=== PATIENT | male | born 1980 | race Caucasian/White ===

== ENCOUNTER 2020-10-09 10:23 | Emergency (ER) | payer SELFPAY ==
[2020-10-09 10:23] VITALS: BP 135/113; PULSE 57; RESP 16; TEMP 36.7; O2SAT 100; BMI 27.1
--- NOTE | 2020-10-09 10:27 | CT_ITS ---
WS: [id number] CT LUMBAR SPINE, noncontrast. HISTORY: pain TECHNIQUE: Contiguous 2.5 mm axial imaging are performed. Sagittal and coronal reformats are submitte d and reviewed. All CT scans at [facility] use at least one of these dose optimization te chniques: automated exposure control; mA and/or kV adjustment per patient size (includes targeted exa ms where dose is matched to clinical indication); or iterative reconstruction. IV contrast: None DLP: 2905.67 mGy.cm COMPARISON: None available. Straightening of the normal lumbar lordosis. Small hypertrophic endplate osteophytes at all levels. N o fractures. No cord compression is identified. L1-2: Mild osteophytic ridging and annular disc bulging. Very small osteophyte encroaches upon the RI GHT lateral thecal sac with no stenosis. L2-3: Normal. L3-4: Normal. L4-5: Mild annular disc bulging. Very shallow LEFT foraminal disc protrusion not contacting the nerve roots. Mild facet arthritis. L5-S1: Disc osteophyte centrally contacting the ventral thecal sac. There is very minimal contact on the S1 nerve roots bilaterally but the disc and osteophyte complex but no significant displacement. M ild bilateral foraminal narrowing. Visualized retroperitoneum is negative. CT/CT lumbar spine wo con* [id number] IMPRESSION: 1. No lumbar spine fracture. 2. Central disc osteophyte complex at L5-S1 abuts but does not displace the S1 nerve roots. 3. Mild bilateral foraminal stenosis at L5-S1. 4. Very shallow LEFT foraminal disc protrusion at L4-5 without nerve root cont act.
--- NOTE | 2020-10-09 10:29 | ED_ITS ---
HPI - Back Pain/Injury General: Chief Complaint: Back Pain/Injury Stated Complaint: BACK PAIN Time Seen by Provider: 10/09/20 10:25 History of Present Illness: HPI Narrative: 40-year-old male comes in via EMS for with complaint of back pain. He was getting ready to do a morning exercise routine retention stretching suddenly had some lower lumbar back discomfort was severe enough he was not able to continue his activities and actually quickly lowered himself to the ground. He denies any recent trauma or injury. He has had problems with the back in the past tells me he has been recommended that he have surgery in the past but is never pursued it no loss of bowel or bladder control no pain radiating to lower extremities MD elicited complaint: back pain Pertinent past history: prior back pain Onset (ago): minute(s) Timing: constant Severity: moderate Similar Symptoms Previously: Yes Quality: sharp Location: lumbar spine and left lower back Radiation: none Exacerbating factors: none Relieving factors: none Context: turning/twisting and bending Associated symptoms: Reports difficulty walking; Deny abdominal pain, arthralgias, chills, change in bowel habits, dysuria, fatigue, fecal incontinence, fever(s), hematuria, myalgias, nausea, numbness, syncope, tingling/numbness/burning, urinary frequency, urinary urgency, vomiting or weakness Review of Systems Const: Denies: fever(s), chills or fatigue ENMT: Denies: throat pain, ear or mastoid pain, nasal discharge or nasal congestion Card: Denies: syncope Resp: Denies: dyspnea, productive cough or non-productive cough GI: Denies: abdominal pain, nausea, fecal incontinence or change in bowel habits : Denies: dysuria, urinary urgency or hematuria Skin/Breast: Denies: rash or pruritus Neuro: Reports: difficulty walking Physical Exam Const: COMMON NORMALS: no acute distress GENERAL APPEARANCE: cooperative and comfortable ORIENTATION/CONSCIOUSNESS: Yes awake, Yes oriented to person, Yes oriented to place and Yes oriented to time HENMT: COMMON NORMALS: normocephalic, atraumatic and hearing grossly normal bilaterally HEAD & SCALP: normocephalic and atraumatic Neck/C-Spine: COMMON NORMALS: full ROM, no lymphadenopathy, supple and no JVD Resp: COMMON NORMALS: normal respiratory effort, No retractions, No use of accessory muscles and clear to auscultation bilaterally AUSCULTATION: clear to auscultation bilaterally Cardio: COMMON NORMALS: no JVD, regular rate, regular rhythm and No murmurs present (Cardio) RATE: regular rate RHYTHM: regular rhythm GI: COMMON NORMALS: Soft to palpation and No hepatosplenomegaly present AUSCULTATION: Yes normoactive bowel sounds PALPATION: Yes Soft to palpation, No Tenderness to palpation present (GI), No Guarding due to palpation present (GI) and Yes No hepatosplenomegaly present Extremity: COMMON NORMALS: normal to inspection, capillary refill normal, no clubbing, cyanosis or edema, no calf tenderness and no pedal edema Neuro: SENSORIUM/ORIENTATION: Yes oriented to person, Yes oriented to place and Yes oriented to time OTHER: Straight leg raising negative dorsum plantar flexion 5/5 sensation lower extremities normal Skin: COMMON NORMALS: no rashes or lesions noted GENERAL SKIN EXAM: no rashes or lesions noted Course Vital Signs: Vital signs: Vital Signs Temperature 98.1 F 10/09/20 10:23 Pulse Rate 65 10/09/20 11:43 Respiratory Rate 18 10/09/20 11:43 Blood Pressure 113/66 10/09/20 11:43 Pulse Oximetry 98 10/09/20 11:43 MDM - Back Pain/Injury MDM Narrative: Medical decision making narrative: He reviewed no acute impingement or fracture or sign of abscess or abnormality. Patient is much better after initial medications given treat as musculoskeletal strain follow-up with primary care doctor if persists or worsens can return to the emergency room. Discharge Plan Discharge Patient Disposition: Home Clinical Impression: Strain of lumbar region Condition: Stable Prescriptions: New diclofenac sodium 75 mg tablet,delayed release (DR/EC) 75 mg PO Q12H PRN (Reason: pain) Qty: 20 RF: 0 Medrol (Jose Enrique) 4 mg tablets,dose pack See Rx Instructions .ROUTE .COMPLEX Qty: 21 RF: 0 tizanidine 4 mg capsule 4 mg PO Q8H PRN (Reason: muscle spasticity) Qty: 20 RF: 0 No Action L-Arginine Amino Acid Powder See Rx Instructions .ROUTE .COMPLEX RF: 0 Whey Protein See Rx Instructions .ROUTE .COMPLEX RF: 0 Discharge Orders: Discharge ED (Routine); Ordered 10/09/20 Ordered By: Ridge Eddy Coding Level of Care Code ED Campaign Coordinator for Chg Fwd Exam Comprehensive
[2020-10-09] MEDS: ketorolac 60 mg/2 mL INJ IM (10:37)
[2020-10-09] MEDS: orphenadrine 30 mg/mL Inj 2 mL 60 MG IM (10:37)
[2020-10-09 11:43] VITALS: BP 113/66; PULSE 65; RESP 18; O2SAT 98
== END 2020-10-09 11:43 | disposition home or self-care (01) ==
PROVIDERS: Emergency Provider Family Medicine
DX: S39.012A Strain of muscle, fascia and tendon of lower back, initial encounter (principal); X50.9XXA Other and unspecified overexertion or strenuous movements or postures, initial encounter
CPT/HCPCS: 12345; 72131; 96372; 96374; 99281; 99283; J1885; J2360; J2930

== ENCOUNTER 2023-09-12 09:43 | Emergency (ER) | payer MEDICAID, SELFPAY ==
[2023-09-12 10:10] VITALS: BP 140/72; PULSE 77; RESP 16; TEMP 36.9; O2SAT 98; BMI 27.1
--- NOTE | 2023-09-12 10:25 | ED.C_ITS ---
HPI - Psych General: Chief Complaint: Psychiatric Symptoms Stated Complaint: Mouth pain Time Seen by Provider: 09/12/23 10:15 Source: patient Mode of arrival: ambulatory Limitations: no limitations History of Present Illness: 43-year-old male states he had not seen a dentist yesterday and informed that he needs to have his left upper teeth pulled he states he been causing him severe pain. He states they did want him to follow-up with the [facility] surgeon that did place my device did not give him any pain medicine. He states that his pain is severe and he just cannot take the pain anymore. He denies being suicidal to me when asked in triage he stated that he did not want to live with this pain anymore but he denies being suicidal and he states I have a family to live for and I am just in pain and want my pain treated. Review of Systems Const: Denies: fever(s), chills, body aches or change in appetite ENMT: Reports: dental pain; Denies: throat pain Card: Denies: chest pain Resp: Denies: dyspnea GI: Denies: abdominal pain, nausea, vomiting or diarrhea Musc: Denies: neck pain or back pain Skin/Breast: Denies: rash Neuro: Denies: headache(s) Physical Exam Const: COMMON NORMALS: no acute distress, patient oriented x3 and healthy appearing HENMT: COMMON NORMALS: normocephalic and atraumatic HEAD & SCALP: normoce phalic and atraumatic OTHER: tender over left upper molar no abscess or trismus Eye: COMMON NORMALS: Equal, round and reactive pupils present and EOMs intact bilaterally PUPIL: Yes Equal, round and reactive pupils present Neck/C-Spine: COMMON NORMALS: full ROM and supple Chest: COMMONS NORMALS: normal inspection of the chest Resp: COMMON NORMALS: normal respiratory effort Cardio: COMMON NORMALS: regular rate, regular rhythm and No murmurs present (Cardio) RATE: regular rate RHYTHM: regular rhythm Extremity: COMMON NORMALS: normal to inspection and full ROM Neuro: COMMON NORMALS: patient oriented x3, moves all extremities and no focal motor deficits Psych: COMMON NORMALS: mental status grossly normal, Normal thought process present and cooperative THOUGHT PROCESS: Normal thought process present Skin: COMMON NORMALS: no rashes or lesions noted and no wounds GENERAL SKIN EXAM: no rashes or lesions noted Course Vital Signs: Vital signs: Vital Signs Temperature 98.4 F 09/12/23 10:10 Pulse Rate 73 09/12/23 10:52 Respiratory Rate 16 09/12/23 10:52 Blood Pressure 140/72 09/12/23 10:10 Pulse Oximetry 97 09/12/23 10:52 Oxygen Delivery Me thod Room Air 09/12/23 10:10 MDM - Psych Medical Decision Making Patient presents here with dental pain patient's well-appearing here we will prescribe him pain medicine he is to follow-up with a dentist. He is not suicidal he is adamant to me was spoke to him that he just does not like dealing with this pain and he just wants pain control he does not need any psychiatric help I do not believe he needs any psychiatric help I do not believe he is a threat to kill himself he is return if worsening Medical Records I reviewed the patient's medical records. No radiology studies performed this visit Discharge Plan Discharge Patient Disposition: Home Clinical Impression: Pain, dental Condition: Stable Prescriptions: New hydrocodone-acetaminophen 5-325 mg tablet 1 tab PO Q6H PRN (Reason: pain) Qty: 14 0RF Naprosyn 500 mg tablet 500 mg PO BID PRN (Reason: pain) Qty: 20 0RF No Action L-Arginine Amino Acid Powder See Rx Instructions .ROUTE .COMPLEX Rx Instructions: drinks 4 days a week Whey Protein See Rx Instructions .ROUTE .COMPLEX Rx Instructions: drinks 4 days a week diclofenac sodium 75 mg tablet,delayed release (DR/EC) 75 mg PO Q12H PRN (Reason: pain) Qty: 20 0RF Medrol (Jose Enrique) 4 mg tablets,dose pack See Rx Instructions .ROUTE .COMPLEX Qty: 21 0RF Rx Instructions: orally per package directions tizanidine 4 mg capsule 4 mg PO Q8H PRN (Reason: muscle spasticity) Qty: 20 0RF Discharge Orders: Discharge ED (Routine); Ordered 09/12/23 Ordered By: Maria G Patel Discharge Diet: Advance as tolerated Discharge Activity: Resume usual activity Patient Instructions: Toothache (ED) Coding Level of Care Code ED Water Hydrant Installer for Zay Rehman
[2023-09-12] MEDS: morphine 4 mg/mL SDV 1 mL 8 MG IM (10:37)
[2023-09-12 10:52] VITALS: PULSE 73; RESP 16; O2SAT 97
== END 2023-09-12 10:53 | disposition home or self-care (01) ==
PROVIDERS: Emergency Provider Emergency Medicine
DX: K08.89 Other specified disorders of teeth and supporting structures (principal)
CPT/HCPCS: 96372; 99284; J2270

== ENCOUNTER 2023-12-08 09:34 | Emergency (ER) | payer MEDICAID, SELFPAY ==
[2023-12-08 09:47] VITALS: BP 139/77; PULSE 67; RESP 16; TEMP 36.6; O2SAT 97; BMI 27.1
--- NOTE | 2023-12-08 10:01 | ED_ITS ---
HPI - Extremity Injury (Lower) General: Chief Complaint: Extremity Injury, Lower Stated Complaint: left knee pain Time Seen by Provider: 12/08/23 09:52 Source: patient Mode of arrival: ambulatory Limitations: no limitations History of Present Illness: Patient is a 43-year-old male presents to ED today for evaluation of left sustained while he was at the gym earlier today when he accidentally dropped a weight onto his knee. Patient is ambulatory with a limp. He states he was standing holding the weight when it dropped and struck the top portion of his patella. No edema noted. MD complaint: knee injury Onset (ago): hour(s) Injury: Left: knee Place: other (gym) Severity: moderate Relieving factors: immobilization Exacerbating factors: weight bearing, movement and palpation Context: direct blow Associated symptoms: Reports no associated symptoms Other symptoms: none Review of Systems Musc: Reports: joint pain (L knee); Denies: extremity pain, extremity swelling, joint swelling, joint redness or joint warmth Neuro: Denies: numbness in extremities or sensory changes Physical Exam Const: COMMON NORMALS: no acute distress, average body habitus, patient oriented x3, no limitations, healthy appearing, alert and well nourished Extremity: COMMON NORMALS: capillary refill normal, no joint enlargement, no clubbing, cyanosis or edema, no calf tenderness and no pedal edema GENERAL: Yes normal exam except as noted LEFT LOWER EXTREMITY: Yes knee joint (mild contusion to superior portion of patella) Left knee: Yes ROM (fairly normal ROM; tenderness at end degrees of flexion), Yes neurovascular exam (normal) and Yes other (no swelling/edema noted) Neuro: COMMON NORMALS: patient oriented x3, moves all extremities, no focal motor deficits and no sensory deficits noted SENSORIUM/ORIENTATION: Yes alert Course Vital Signs: Vital signs: Vital Signs Temperature 97.9 F 12/08/23 10:48 Pulse Rate 67 12/08/23 10:48 Respiratory Rate 16 12/08/23 10:48 Blood Pressure 139/77 12/08/23 10:48 Pulse Oximetry 97 12/08/23 10:48 Oxygen Delivery Me thod Room Air 12/08/23 09:47 MDM - Extremity Injury (Lower) Medical Decision Making XR negative. Will DENIA wrap and give crutches with instructions for weightbearing as tolerated. RICE therapy discussed. All radiology interpretation(s) finalized by discharge Discharge Plan Discharge Patient Disposition: Home Clinical Impression: Contusion of left knee Qualifiers: Encounter type: initial encounter Qualified Code(s): S80.02XA - Contusion of left knee, initial encounter Condition: Stable Prescriptions: No Action L-Arginine Amino Acid Powder See Rx Instructions .ROUTE .COMPLEX Rx Instructions: drinks 4 days a week naproxen [Naprosyn] 500 mg tablet 500 mg PO BID PRN (Reason: pain) Qty: 20 0RF Discharge Orders: Discharge ED (Routine); Ordered 12/08/23 Ordered By: Francine Headley Patient Instructions: Contusion, RICE Therapy Coding Level of Care Code ED Registered Dietetic Technician for Zay Rehman
--- NOTE | 2023-12-08 10:19 | XR_ITS ---
WS: [id number] Examination: XR knee LT 3V* [id number] Reason for Exam: injury Date: December 08, 2023 Comparison: None. Findings: The bone density is maintained. There is no destruction. There is no displaced fracture. There is no dislocation no large joint effusion is present. There is patellar spurring. Impression: No acute bony abnormality is identified.
[2023-12-08 10:48] VITALS: BP 139/77; PULSE 67; RESP 16; TEMP 36.6; O2SAT 97
== END 2023-12-08 10:49 | disposition home or self-care (01) ==
PROVIDERS: Emergency Provider Physician Assistant
DX: S80.02XA Contusion of left knee, initial encounter (principal); W20.8XXA Other cause of strike by thrown, projected or falling object, initial encounter; Y92.39 Other specified sports and athletic area as the place of occurrence of the external cause
CPT/HCPCS: 73562; 99283; E0114